=== PATIENT | male | born 1995 | race African-American/Black ===

== ENCOUNTER 2016-09-23 21:04 | Emergency (ER) | payer OTHER ==
[2016-09-23] MEDS ORDERED: IBUPROFEN 600 MG TAB As Ordered ONE (22:19)
[2016-09-23] MEDS ORDERED: ONDANSETRON 4MG/2ML VIAL (J2405) As Ordered ONE (22:19)
[2016-09-23 22:35] LABS: BASO # 0.1 K/mm3 (0.0-0.2); BASO % 1.1 % (0.0-1.0); EOS # 0.1 K/mm3 (0.0-0.50); EOS % 1.7 % (0.0-3.0); LARGE UNSTAINED CELL # 0.2 K/mm3 (0.0-0.4); LARGE UNSTAINED CELL % 2.8 % (0.0-4.0); LYMPH # 1.8 K/mm3 (1.5-6.5); LYMPH % 20.3 % (24.0-44.0); MEAN CORPUSCULAR HEMOGLOBIN 28.9 pg (27.0-33.0); MEAN CORPUSCULAR HGB CONC 33.5 g/dl (32.0-36.5); MEAN CORPUSCULAR VOLUME 86.2 fl (80.0-96.0); MONO # 0.6 K/mm3 (0.0-0.8); MONO % 7.1 % (0.0-5.0); NEUTROPHILS # 5.2 K/mm3 (1.8-7.7); PLATELET COUNT, AUTOMATED 433 k/mm3 (150-450); RED CELL DISTRIBUTION WIDTH 13.7 % (11.5-14.5); WHITE BLOOD COUNT 7.7 K/mm3 (4.0-10.0)
[2016-09-23 23:04] LABS: ALBUMIN 4.5 GM/DL (3.2-5.2); ALBUMIN/GLOBULIN RATIO 1.05 (1.00-1.93); ALKALINE PHOSPHATASE 79 U/L (45-117); ALT/SGPT 30 U/L (12-78); ANION GAP 10 MEQ/L (8-16); AST/SGOT 28 U/L (15-37); BILIRUBIN,DIRECT 0.2 MG/DL (0.0-0.2); BILIRUBIN,TOTAL 0.6 MG/DL (0.2-1.0); BLOOD UREA NITROGEN 22 MG/DL (7-18); CALCIUM LEVEL 9.6 MG/DL (8.5-10.1); CARBON DIOXIDE LEVEL 26 MEQ/L (21-32); CHLORIDE LEVEL 101 MEQ/L (98-107); CREATININE FOR GFR 1.22 MG/DL (0.70-1.30); GLOMERULAR FILTRATION RATE > 60.0 (>60); GLUCOSE, FASTING 83 MG/DL (70-105); SODIUM LEVEL 137 MEQ/L (136-145); TOTAL PROTEIN 8.8 GM/DL (6.4-8.2)
--- NOTE | 2016-09-24 00:02 | EDDOCDS ---
Nurse's Notes [facility] Name: Aj Solis Age: 21 yrs Sex: Male : 1995 Arrival Date: 09/23/2016 Time: 21:04 Bed I9 / 22 Private MD: NJDAVE CHURCH Diagnosis: Nausea and vomiting Presentation: 09/23 21:09 Presenting complaint: Patient states: headache, vomiting for 2-4 days. Adult Sepsis rs3 Screening: The patient does not have new or worsening altered mentation. Patient's respiratory rate is less than 22. Systolic blood pressure is greater than 100. Patient has a qSOFA score of 0- Negative Sepsis Screen. Suicide/Homicide risk assessment- the patient denies having any suicidal and/or homicidal ideations and does not present with any other emotional, behavioral or mental health complaints. 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 Transition of care: patient was not received from another setting of care. 21:09 Acuity: ANNE Level 3 rs3 21:09 Method Of Arrival: Walkin/Carried/Asstd rs3 Triage Assessment: 21:10 General: Appears in no apparent distress. Pain: Location: generalized. HIV screening NA rs3 for this visit Offered previously. Historical: - Allergies: no known allergies; - Home Meds: 1. none - PMHx: none; - PSHx: none; - Social history: Smoking status: Patient states former smoker of tobacco. No barriers to communication noted, The patient speaks fluent Yoruba. - Family history: Not pertinent. - : The pt / caregiver states he / she is not on anticoagulants. Home medication list is obtained from the patient. - Exposure Risk Screening:: None identified. Screenin:33 Screening information is obtained from the patient. Fall risk: No risks identified. ms18 Assistance ADL's: requires no assistance with activities of daily living. Abuse/DV Screen: The patient / caregiver reports he/she is: not in a situation that causes fear, pain or injury. Nutritional screening: No deficits noted. Advance Directives: There is no living will. home support is adequate. Assessment: 22:33 General: Appears in no apparent distress, comfortable, Behavior is appropriate for age, ms18 cooperative. Pain:. Neurological: Level of Consciousness is awake, alert, obeys commands, Oriented to person, place, time. Respiratory: Airway is patent Respiratory effort is even, unlabored. GI: Abdomen is flat, non- distended Bowel sounds present X 4 quads. Abd is soft X 4 quads Reports nausea, vomiting, intolerance of food, intolerance of fluids. Derm: Skin is pink, warm & dry. normal. 23:09 General: Appears in no apparent distress, comfortable, Behavior is appropriate for age, jmb cooperative. Neurological: Level of Consciousness is awake, alert, obeys commands, Oriented to person, place, time, Speech is normal. Respiratory: Airway is patent Respiratory effort is even, unlabored, Respiratory pattern is regular, symmetrical. 09/24 00:00 Reassessment: Patient appears in no apparent distress at this time. General: pt torey slm fluids at this time . Vital Signs: 09/23 21:06 BP 163 / 90; Pulse 86; Resp 18 S; Temp 99.1(O); Pulse Ox 100% on R/A; Weight 76.2 kg dd6 (R); Height 5 ft. 8 in. (172.72 cm) (R); 23:36 BP 132 / 68; Pulse 74; Resp 18; Temp 98.6; Pulse Ox 98% ; ajs 21:06 Body Mass Index 25.54 (76.20 kg, 172.72 cm) dd6 Vitals: 21:06 Log In Time: September 23, 2016 at 21:04. dd6 ED Course: 21:05 Patient visited by Bonifacio Coleman, WM. dd6 21:05 [facility], DAVE JEROME is Private Physician. dd6 21:05 Patient moved to Waiting dd6 21:07 Patient moved to Pre RCE dd6 21:10 Triage Initiated rs3 22:00 Sea Howard MD is Attending Physician. br1 22:00 Patient moved to I9 / kmg1 22:09 Patient visited by Sea Howard MD. br1 22:31 CBC with Diff Sent. ms18 22:31 BMP Sent. ms18 22:31 Liver Profile Sent. ms18 22:31 Lipase Sent. ms18 22:33 Patient visited by Erin Duarte RN. ms18 22:33 The patient / caregiver is instructed regarding the plan of care and ED course. ms18 Accompanied by Significant Other, Patient has correct armband on for positive identification. Placed in gown. Property :Personal belongings accompany Pt. 22:33 Inserted saline lock: 18 gauge in right forearm and blood collected. The patient ms18 tolerated the procedure well. 23:09 Patient visited by Neftali Ramon RN. jmb 23:22 Patient visited by Sea Howard MD. br1 23:36 Patient visited by Sea Howard MD. br1 23:37 Patient visited by Sanam Patterson. ajs 23:37 [facility] br1 23:59 Discontinued lock intact, bleeding controlled, pressure dressing applied, No slm redness/swelling at site. No procedures done that require assistance. 09/24 00:01 Patient visited by Shanae Hi LPN. slm Administered Medications: 09/23 22:31 Drug: Ondansetron 4 mg Route: IVP; Site: right forearm; ms18 09/24 00:00 Follow up: Response: Nausea is decreased slm 09/23 22:32 Drug: NS 0.9% 1000 ml [sodium chloride 0.9 % intravenous solution] Route: IV; Rate: ms18 bolus; Site: right forearm; 09/24 00:00 Follow up: IV Status: Completed infusion; IV Intake: 1000ml slm 09/23 22:32 Drug: Ibuprofen 600 mg [ibuprofen 600 mg tablet (1 tabs)] Route: PO; ms18 Intake: 09/24 00:00 IV: 1000.00ml; Total: 1000.00ml. slm Order Results: Lab Order: CBC with Diff; SPEC'M 09/23/16 22:20 Test: WHITE BLOOD COUNT; Value: 7.7; Range: 4.0-10.0; Units: K/mm3; Status: F Test: RED BLOOD COUNT; Value: 5.53; Range: 4.30-6.10; Units: M/mm3; Status: F Test: HEMOGLOBIN; Value: 16.0; Range: 14.0-18.0; Units: g/dl; Status: F Test: HEMATOCRIT; Value: 47.7; Range: 42.0-52.0; Units: %; Status: F Test: MEAN CORPUSCULAR VOLUME; Value: 86.2; Range: 80.0-96.0; Units: fl; Status: F Test: MEAN CORPUSCULAR HEMOGLOBIN; Value: 28.9; Range: 27.0-33.0; Units: pg; Status: F Test: MEAN CORPUSCULAR HGB CONC; Value: 33.5; Range: 32.0-36.5; Units: g/dl; Status: F Test: RED CELL DISTRIBUTION WIDTH; Value: 13.7; Range: 11.5-14.5; Units: %; Status: F Test: PLATELET COUNT, AUTOMATED; Value: 433; Range: 150-450; Units: k/mm3; Status: F Test: NEUTROPHILS %; Value: 67.0; Range: 36.0-66.0; Abnormal: Above high normal; Units: %; Status: F Test: LYMPH %; Value: 20.3; Range: 24.0-44.0; Abnormal: Below low normal; Units: %; Status: F Test: MONO %; Value: 7.1; Range: 0.0-5.0; Abnormal: Above high normal; Units: %; Status: F Test: EOS %; Value: 1.7; Range: 0.0-3.0; Units: %; Status: F Test: BASO %; Value: 1.1; Range: 0.0-1.0; Abnormal: Above high normal; Units: %; Status: F Test: LARGE UNSTAINED CELL %; Value: 2.8; Range: 0.0-4.0; Units: %; Status: F Test: NEUTROPHILS #; Value: 5.2; Range: 1.8-7.7; Units: K/mm3; Status: F Test: LYMPH #; Value: 1.8; Range: 1.5-6.5; Units: K/mm3; Status: F Test: MONO #; Value: 0.6; Range: 0.0-0.8; Units: K/mm3; Status: F Test: EOS #; Value: 0.1; Range: 0.0-0.50; Units: K/mm3; Status: F Test: BASO #; Value: 0.1; Range: 0.0-0.2; Units: K/mm3; Status: F Test: LARGE UNSTAINED CELL #; Value: 0.2; Range: 0.0-0.4; Units: K/mm3; Status: F Lab Order: BMP; SPEC'M 09/23/16 22:20 Test: GLUCOSE, FASTING; Value: 83; Range: 70-105; Units: MG/DL; Status: F Test: BLOOD UREA NITROGEN; Value: 22; Range: 7-18; Abnormal: Above high normal; Units: MG/DL; Status: F Test: CREATININE FOR GFR; Value: 1.22; Range: 0.70-1.30; Units: MG/DL; Status: F Test: GLOMERULAR FILTRATION RATE; Value: > 60.0; Range: >60; Status: F Test: SODIUM LEVEL; Value: 137; Range: 136-145; Units: MEQ/L; Status: F Test: POTASSIUM SERUM; Value: 4.0; Range: 3.5-5.1; Units: MEQ/L; Status: F Test: CHLORIDE LEVEL; Value: 101; Range: 98-107; Units: MEQ/L; Status: F Test: CARBON DIOXIDE LEVEL; Value: 26; Range: 21-32; Units: MEQ/L; Status: F Test: ANION GAP; Value: 10; Range: 8-16; Units: MEQ/L; Status: F Test: CALCIUM LEVEL; Value: 9.6; Range: 8.5-10.1; Units: MG/DL; Status: F Test Note: ; Units are mL/min/1.73 m2 Chronic Kidney Disease Staging per NKF: Stage I & II GFR >=60 Normal to Mildly Decreased Stage III GFR 30-59 Moderately Decreased Stage IV GFR 15-29 Severely Decreased Stage V GFR <15 Very Little GFR Left ESRD GFR <15 on EMPLOYMENT INTERVIEWER Lab Order: Liver Profile; SPEC'M 09/23/16 22:20 Test: AST/SGOT; Value: 28; Range: 15-37; Units: U/L; Status: F Test: ALT/SGPT; Value: 30; Range: 12-78; Units: U/L; Status: F Test: ALKALINE PHOSPHATASE; Value: 79; Range: 45-117; Units: U/L; Status: F Test: BILIRUBIN,TOTAL; Value: 0.6; Range: 0.2-1.0; Units: MG/DL; Status: F Test: BILIRUBIN,DIRECT; Value: 0.2; Range: 0.0-0.2; Units: MG/DL; Status: F Test: TOTAL PROTEIN; Value: 8.8; Range: 6.4-8.2; Abnormal: Above high normal; Units: GM/DL; Status: F Test: ALBUMIN; Value: 4.5; Range: 3.2-5.2; Units: GM/DL; Status: F Test: ALBUMIN/GLOBULIN RATIO; Value: 1.05; Range: 1.00-1.93; Status: F Lab Order: Lipase; SPEC'M 09/23/16 22:20 Test: LIPASE; Value: 95; Range: 73-393; Units: U/L; Status: F Outcome: 09/23 23:38 Discharge ordered by Provider. br1 09/24 00:00 Discharge Assessment: Patient awake, alert and oriented x 3. No cognitive and/or slm functional deficits noted. Patient verbalized understanding of disposition instructions. patient administered narcotics - no. The following High Risk Discharge criteria are identified: None. Discharged to home ambulatory, with significant other. Condition: good Condition: improved. Discharge instructions given to patient, Instructed on discharge instructions, follow up and referral plans. medication usage, Demonstrated understanding of instructions, medications, Pt was receptive of discharge instructions/ teaching. Prescriptions given X 1. CT Study completed. 00:01 Patient left the ED. slm Signatures: Zari Howell, RN RN kmg1 Sea Howard MD MD br1 Bonifacio Coleman, DIESEL POWERPLANT SUPERVISOR DIESEL POWERPLANT SUPERVISOR dd6 Barby Olguin,RN RN rs3 Sanam Pattersno JoshuaRN RN Shanae Fontaine LPN LPN slm Smith, MalloryRN RN ms18 MTDD
--- NOTE | 2016-09-24 00:02 | EDDOCDS ---
Physician Documentation [facility] Name: Aj Solis Age: 21 yrs Sex: Male : 1995 Arrival Date: 09/23/2016 Time: 21:04 Bed I9 / 22 [facility] Disposition: 09/23/16 23:38 Discharged to Home/Self Care. Impression: Nausea and vomiting. - Condition is Stable. - Discharge Instructions: Nausea and Vomiting. - Prescriptions for ZOFRAN ODT 4 mg - dissolve 1 tablet by ORAL route 4 times per day As needed do not chew, do not swallow whole; 10 tablet. - Medication Reconciliation, Local Pharmacy Hours form. - [facility]; When: 2 - 3 days; Reason: Recheck today's complaints. - Problem is new. - Symptoms have improved. - Notes: You were seen in the ED for nausea and vomiting. Bloodwork showed no acute findings. You were treated and improved with medication and IV fluids. As you are feeling better you may return home, encourage plenty of clear liquids, and take Zofran as needed for nausea. Call your doctor to arrange to be seen for recheck in the office this week. Return to the ED for any worsening pain or vomiting, fever, inability to tolerate oral foods or liquids or any other concerns. Historical: - Allergies: no known allergies; - Home Meds: 1. none - PMHx: none; - PSHx: none; - Social history: Smoking status: Patient states former smoker of tobacco. No barriers to communication noted, The patient speaks fluent Hungarian. - Family history: Not pertinent. - : The pt / caregiver states he / she is not on anticoagulants. Home medication list is obtained from the patient. - Exposure Risk Screening:: None identified. Vital Signs: 09/23 21:06 BP 163 / 90; Pulse 86; Resp 18 S; Temp 99.1(O); Pulse Ox 100% on R/A; Weight 76.2 kg / dd6 167.99 lbs (R); Height 5 ft. 8 in. (172.72 cm) (R); 23:36 BP 132 / 68; Pulse 74; Resp 18; Temp 98.6; Pulse Ox 98% ; ajs 21:06 Body Mass Index 25.54 (76.20 kg, 172.72 cm) dd6 MDM: 22:10 IV Saline Lock ordered. br1 22:10 Ondansetron 4 mg IVP once ordered. br1 22:10 NS 0.9% 1000 ml IV at bolus once ordered. br1 22:10 Ibuprofen 600 mg PO once ordered. br1 22:11 CBC with Diff Ordered. EDMS 22:11 BMP Ordered. EDMS 22:11 Liver Profile Ordered. EDMS 22:11 Lipase Ordered. EDMS 22:46 CBC with Diff Reviewed. br1 23:18 BMP Reviewed. br1 23:18 Liver Profile Reviewed. br1 23:18 Lipase Reviewed. br1 23:21 Fluid Challenge ordered. br1 23:21 Recheck Vital Signs, perform reassessment and enter into [employer] ordered. br1 23:52 Financial registration complete. hs2 Administered Medications: 22:31 Drug: Ondansetron 4 mg Route: IVP; Site: right forearm; ms18 09/24 00:00 Follow up: Response: Nausea is decreased [facility] 09/23 22:32 Drug: NS 0.9% 1000 ml [sodium chloride 0.9 % intravenous solution] Route: IV; Rate: ms18 bolus; Site: right forearm; 09/24 00:00 Follow up: IV Status: Completed infusion; IV Intake: 1000ml [facility] 09/23 22:32 Drug: Ibuprofen 600 mg [ibuprofen 600 mg tablet (1 tabs)] Route: PO; ms18 Signatures: Dispatcher [employer] Sea Lucas MD MD br1 Barby Olguin RN RN rs3 Shanae Hi LPN LPN Erin Springer RN RN ms18 Brigette Gilman, Reg Reg hs2 MTDD
--- NOTE | 2016-09-26 01:02 | EDDOCDS ---
Physician Documentation [facility] Name: Aj Solis Age: 21 yrs Sex: Male : 1995 Arrival Date: 09/23/2016 Time: 21:04 Bed I9 / 22 Private MD: [facility] Disposition: 09/23/16 23:38 Discharged to Home/Self Care. Impression: Nausea and vomiting. - Condition is Stable. - Discharge Instructions: Nausea and Vomiting. - Prescriptions for ZOFRAN ODT 4 mg - dissolve 1 tablet by ORAL route 4 times per day As needed do not chew, do not swallow whole; 10 tablet. - Medication Reconciliation, Local Pharmacy Hours form. - Follow up: [facility]; When: 2 - 3 days; Reason: Recheck today's complaints. - Problem is new. - Symptoms have improved. - Notes: You were seen in the ED for nausea and vomiting. Bloodwork showed no acute findings. You were treated and improved with medication and IV fluids. As you are feeling better you may return home, encourage plenty of clear liquids, and take Zofran as needed for nausea. Call your doctor to arrange to be seen for recheck in the office this week. Return to the ED for any worsening pain or vomiting, fever, inability to tolerate oral foods or liquids or any other concerns. Historical: - Allergies: no known allergies; - Home Meds: 1. none - PMHx: none; - PSHx: none; - Social history: Smoking status: Patient states former smoker of tobacco. No barriers to communication noted, The patient speaks fluent Jordanian. - Family history: Not pertinent. - : The pt / caregiver states he / she is not on anticoagulants. Home medication list is obtained from the patient. - Exposure Risk Screening:: None identified. Vital Signs: 09/23 21:06 BP 163 / 90; Pulse 86; Resp 18 S; Temp 99.1(O); Pulse Ox 100% on R/A; Weight 76.2 kg / dd6 167.99 lbs (R); Height 5 ft. 8 in. (172.72 cm) (R); 23:36 BP 132 / 68; Pulse 74; Resp 18; Temp 98.6; Pulse Ox 98% ; ajs 21:06 Body Mass Index 25.54 (76.20 kg, 172.72 cm) dd6 MDM: 22:10 IV Saline Lock ordered. br1 22:10 Ondansetron 4 mg IVP once ordered. br1 22:10 NS 0.9% 1000 ml IV at bolus once ordered. br1 22:10 Ibuprofen 600 mg PO once ordered. br1 22:11 CBC with Diff Ordered. EDMS 22:11 BMP Ordered. EDMS 22:11 Liver Profile Ordered. EDMS 22:11 Lipase Ordered. EDMS 22:46 CBC with Diff Reviewed. br1 23:18 BMP Reviewed. br1 23:18 Liver Profile Reviewed. br1 23:18 Lipase Reviewed. br1 23:21 Fluid Challenge ordered. br1 23:21 Recheck Vital Signs, perform reassessment and enter into Med[employer] ordered. br1 23:52 Financial registration complete. hs2 09/24 00:18 [facility] Payment Agreement was scanned into [employer] and attached to record. hs2 21:06 T-Sheet-- Draft Copy was scanned into [employer] and attached to record. klr Administered Medications: 09/23 22:31 Drug: Ondansetron 4 mg Route: IVP; Site: right forearm; ms18 09/24 00:00 Follow up: Response: Nausea is decreased [facility] 09/23 22:32 Drug: NS 0.9% 1000 ml [sodium chloride 0.9 % intravenous solution] Route: IV; Rate: ms18 bolus; Site: right forearm; 09/24 00:00 Follow up: IV Status: Completed infusion; IV Intake: 1000ml [facility] 09/23 22:32 Drug: Ibuprofen 600 mg [ibuprofen 600 mg tablet (1 tabs)] Route: PO; ms18 Signatures: Dispatcher Med[employer] EDMS Sea Howard MD MD br1 Barby Olguin RN RN rs3 Shanae Hi LPN LPN slm Erin Duarte RN RN ms18 Brigette Gilman, Reg Reg hs2 Gudelia Grimaldo klr The chart was reviewed and I authenticate all verbal orders and agree with the evaluation and treatment provided.Attachments: 09/24 00:18 [facility] Payment Agreement hs2 21:06 T-Sheet-- Draft Copy klr Chart Complete MTDD
--- NOTE | 2016-09-26 01:02 | EDDOCDS ---
Physician Documentation [facility] Name: Aj Solis Age: 21 yrs Sex: Male : 1995 Arrival Date: 09/23/2016 Time: 21:04 Bed I9 / 22 [facility] Disposition: 09/23/16 23:38 Discharged to Home/Self Care. Impression: Nausea and vomiting. - Condition is Stable. - Discharge Instructions: Nausea and Vomiting. - Prescriptions for ZOFRAN ODT 4 mg - dissolve 1 tablet by ORAL route 4 times per day As needed do not chew, do not swallow whole; 10 tablet. - Medication Reconciliation, Local Pharmacy Hours form. - [facility]; When: 2 - 3 days; Reason: Recheck today's complaints. - Problem is new. - Symptoms have improved. - Notes: You were seen in the ED for nausea and vomiting. Bloodwork showed no acute findings. You were treated and improved with medication and IV fluids. As you are feeling better you may return home, encourage plenty of clear liquids, and take Zofran as needed for nausea. Call your doctor to arrange to be seen for recheck in the office this week. Return to the ED for any worsening pain or vomiting, fever, inability to tolerate oral foods or liquids or any other concerns. Historical: - Allergies: no known allergies; - Home Meds: 1. none - PMHx: none; - PSHx: none; - Social history: Smoking status: Patient states former smoker of tobacco. No barriers to communication noted, The patient speaks fluent Croatian. - Family history: Not pertinent. - : The pt / caregiver states he / she is not on anticoagulants. Home medication list is obtained from the patient. - Exposure Risk Screening:: None identified. Vital Signs: 09/23 21:06 BP 163 / 90; Pulse 86; Resp 18 S; Temp 99.1(O); Pulse Ox 100% on R/A; Weight 76.2 kg / dd6 167.99 lbs (R); Height 5 ft. 8 in. (172.72 cm) (R); 23:36 BP 132 / 68; Pulse 74; Resp 18; Temp 98.6; Pulse Ox 98% ; ajs 21:06 Body Mass Index 25.54 (76.20 kg, 172.72 cm) dd6 MDM: 22:10 IV Saline Lock ordered. br1 22:10 Ondansetron 4 mg IVP once ordered. br1 22:10 NS 0.9% 1000 ml IV at bolus once ordered. br1 22:10 Ibuprofen 600 mg PO once ordered. br1 22:11 CBC with Diff Ordered. EDMS 22:11 BMP Ordered. EDMS 22:11 Liver Profile Ordered. EDMS 22:11 Lipase Ordered. EDMS 22:46 CBC with Diff Reviewed. br1 23:18 BMP Reviewed. br1 23:18 Liver Profile Reviewed. br1 23:18 Lipase Reviewed. br1 23:21 Fluid Challenge ordered. br1 23:21 Recheck Vital Signs, perform reassessment and enter into Med[employer] ordered. br1 23:52 Financial registration complete. hs2 09/24 00:18 [facility] Payment Agreement was scanned into [email or web address] and attached to record. hs2 21:06 T-Sheet-- Draft Copy was scanned into [email or web address] and attached to record. klr Administered Medications: 09/23 22:31 Drug: Ondansetron 4 mg Route: IVP; Site: right forearm; ms18 09/24 00:00 Follow up: Response: Nausea is decreased [facility] 09/23 22:32 Drug: NS 0.9% 1000 ml [sodium chloride 0.9 % intravenous solution] Route: IV; Rate: ms18 bolus; Site: right forearm; 09/24 00:00 Follow up: IV Status: Completed infusion; IV Intake: 1000ml [facility] 09/23 22:32 Drug: Ibuprofen 600 mg [ibuprofen 600 mg tablet (1 tabs)] Route: PO; ms18 Signatures: Dispatcher [employer] EDMS Sea Howard MD MD br1 Barby Olguin RN RN rs3 Shanae Hi LPN LPN slm Erin Duarte RN RN ms18 Brigette Gilman, Reg Reg hs2 Gudelia Grimaldo klr The chart was reviewed and I authenticate all verbal orders and agree with the evaluation and treatment provided.Attachments: 09/24 00:18 [facility] Payment Agreement hs2 21:06 T-Sheet-- Draft Copy klr Chart Complete MTDD
--- NOTE | 2016-09-26 01:02 | EDDOCDS ---
Nurse's Notes [facility] Name: Aj Solis Age: 21 yrs Sex: Male : 1995 Arrival Date: 09/23/2016 Time: 21:04 Bed I9 / 22 Private MD: PADAVE CHURCH Diagnosis: Nausea and vomiting Presentation: 09/23 21:09 Presenting complaint: Patient states: headache, vomiting for 2-4 days. Adult Sepsis rs3 Screening: The patient does not have new or worsening altered mentation. Patient's respiratory rate is less than 22. Systolic blood pressure is greater than 100. Patient has a qSOFA score of 0- Negative Sepsis Screen. Suicide/Homicide risk assessment- the patient denies having any suicidal and/or homicidal ideations and does not present with any other emotional, behavioral or mental health complaints. 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 Transition of care: patient was not received from another setting of care. 21:09 Acuity: ANNE Level 3 rs3 21:09 Method Of Arrival: Walkin/Carried/Asstd rs3 Triage Assessment: 21:10 General: Appears in no apparent distress. Pain: Location: generalized. HIV screening NA rs3 for this visit Offered previously. Historical: - Allergies: no known allergies; - Home Meds: 1. none - PMHx: none; - PSHx: none; - Social history: Smoking status: Patient states former smoker of tobacco. No barriers to communication noted, The patient speaks fluent Portuguese. - Family history: Not pertinent. - : The pt / caregiver states he / she is not on anticoagulants. Home medication list is obtained from the patient. - Exposure Risk Screening:: None identified. Screenin:33 Screening information is obtained from the patient. Fall risk: No risks identified. ms18 Assistance ADL's: requires no assistance with activities of daily living. Abuse/DV Screen: The patient / caregiver reports he/she is: not in a situation that causes fear, pain or injury. Nutritional screening: No deficits noted. Advance Directives: There is no living will. home support is adequate. Assessment: 22:33 General: Appears in no apparent distress, comfortable, Behavior is appropriate for age, ms18 cooperative. Pain:. Neurological: Level of Consciousness is awake, alert, obeys commands, Oriented to person, place, time. Respiratory: Airway is patent Respiratory effort is even, unlabored. GI: Abdomen is flat, non- distended Bowel sounds present X 4 quads. Abd is soft X 4 quads Reports nausea, vomiting, intolerance of food, intolerance of fluids. Derm: Skin is pink, warm & dry. normal. 23:09 General: Appears in no apparent distress, comfortable, Behavior is appropriate for age, jmb cooperative. Neurological: Level of Consciousness is awake, alert, obeys commands, Oriented to person, place, time, Speech is normal. Respiratory: Airway is patent Respiratory effort is even, unlabored, Respiratory pattern is regular, symmetrical. 09/24 00:00 Reassessment: Patient appears in no apparent distress at this time. General: pt torey slm fluids at this time . Vital Signs: 09/23 21:06 BP 163 / 90; Pulse 86; Resp 18 S; Temp 99.1(O); Pulse Ox 100% on R/A; Weight 76.2 kg dd6 (R); Height 5 ft. 8 in. (172.72 cm) (R); 23:36 BP 132 / 68; Pulse 74; Resp 18; Temp 98.6; Pulse Ox 98% ; ajs 21:06 Body Mass Index 25.54 (76.20 kg, 172.72 cm) dd6 Vitals: 21:06 Log In Time: September 23, 2016 at 21:04. dd6 ED Course: 21:05 Patient visited by Bonifacio Coleman, WM. dd6 21:05 [facility], DAVE JEROME is Private Physician. dd6 21:05 Patient moved to Waiting dd6 21:07 Patient moved to Pre RCE dd6 21:10 Triage Initiated rs3 22:00 Sea Howard MD is Attending Physician. br1 22:00 Patient moved to I9 / kmg1 22:09 Patient visited by Sea Howard MD. br1 22:31 CBC with Diff Sent. ms18 22:31 BMP Sent. ms18 22:31 Liver Profile Sent. ms18 22:31 Lipase Sent. ms18 22:33 Patient visited by Erin Duarte RN. ms18 22:33 The patient / caregiver is instructed regarding the plan of care and ED course. ms18 Accompanied by Significant Other, Patient has correct armband on for positive identification. Placed in gown. Property :Personal belongings accompany Pt. 22:33 Inserted saline lock: 18 gauge in right forearm and blood collected. The patient ms18 tolerated the procedure well. 23:09 Patient visited by Neftali Ramon RN. jmb 23:22 Patient visited by Sea Howard MD. br1 23:36 Patient visited by Sea Howard MD. br1 23:37 Patient visited by Sanam Patterson. ajs 23:37 [facility]. br1 23:59 Discontinued lock intact, bleeding controlled, pressure dressing applied, No slm redness/swelling at site. No procedures done that require assistance. 09/24 00:01 Patient visited by Shanae Hi LPN. [facility] 00:18 [facility] Payment Agreement was scanned into [employer] and attached to record. hs2 21:06 T-Sheet-- Draft Copy was scanned into [employer] and attached to record. klr Administered Medications: 09/23 22:31 Drug: Ondansetron 4 mg Route: IVP; Site: right forearm; ms18 09/24 00:00 Follow up: Response: Nausea is decreased [facility] 09/23 22:32 Drug: NS 0.9% 1000 ml [sodium chloride 0.9 % intravenous solution] Route: IV; Rate: ms18 bolus; Site: right forearm; 09/24 00:00 Follow up: IV Status: Completed infusion; IV Intake: 1000ml [facility] 09/23 22:32 Drug: Ibuprofen 600 mg [ibuprofen 600 mg tablet (1 tabs)] Route: PO; ms18 Intake: 09/24 00:00 IV: 1000.00ml; Total: 1000.00ml. [facility] Order Results: Lab Order: CBC with Diff; SPEC'M 09/23/16 22:20 Test: WHITE BLOOD COUNT; Value: 7.7; Range: 4.0-10.0; Units: K/mm3; Status: F Test: RED BLOOD COUNT; Value: 5.53; Range: 4.30-6.10; Units: M/mm3; Status: F Test: HEMOGLOBIN; Value: 16.0; Range: 14.0-18.0; Units: g/dl; Status: F Test: HEMATOCRIT; Value: 47.7; Range: 42.0-52.0; Units: %; Status: F Test: MEAN CORPUSCULAR VOLUME; Value: 86.2; Range: 80.0-96.0; Units: fl; Status: F Test: MEAN CORPUSCULAR HEMOGLOBIN; Value: 28.9; Range: 27.0-33.0; Units: pg; Status: F Test: MEAN CORPUSCULAR HGB CONC; Value: 33.5; Range: 32.0-36.5; Units: g/dl; Status: F Test: RED CELL DISTRIBUTION WIDTH; Value: 13.7; Range: 11.5-14.5; Units: %; Status: F Test: PLATELET COUNT, AUTOMATED; Value: 433; Range: 150-450; Units: k/mm3; Status: F Test: NEUTROPHILS %; Value: 67.0; Range: 36.0-66.0; Abnormal: Above high normal; Units: %; Status: F Test: LYMPH %; Value: 20.3; Range: 24.0-44.0; Abnormal: Below low normal; Units: %; Status: F Test: MONO %; Value: 7.1; Range: 0.0-5.0; Abnormal: Above high normal; Units: %; Status: F Test: EOS %; Value: 1.7; Range: 0.0-3.0; Units: %; Status: F Test: BASO %; Value: 1.1; Range: 0.0-1.0; Abnormal: Above high normal; Units: %; Status: F Test: LARGE UNSTAINED CELL %; Value: 2.8; Range: 0.0-4.0; Units: %; Status: F Test: NEUTROPHILS #; Value: 5.2; Range: 1.8-7.7; Units: K/mm3; Status: F Test: LYMPH #; Value: 1.8; Range: 1.5-6.5; Units: K/mm3; Status: F Test: MONO #; Value: 0.6; Range: 0.0-0.8; Units: K/mm3; Status: F Test: EOS #; Value: 0.1; Range: 0.0-0.50; Units: K/mm3; Status: F Test: BASO #; Value: 0.1; Range: 0.0-0.2; Units: K/mm3; Status: F Test: LARGE UNSTAINED CELL #; Value: 0.2; Range: 0.0-0.4; Units: K/mm3; Status: F Lab Order: BMP; SPEC'M 09/23/16 22:20 Test: GLUCOSE, FASTING; Value: 83; Range: 70-105; Units: MG/DL; Status: F Test: BLOOD UREA NITROGEN; Value: 22; Range: 7-18; Abnormal: Above high normal; Units: MG/DL; Status: F Test: CREATININE FOR GFR; Value: 1.22; Range: 0.70-1.30; Units: MG/DL; Status: F Test: GLOMERULAR FILTRATION RATE; Value: > 60.0; Range: >60; Status: F Test: SODIUM LEVEL; Value: 137; Range: 136-145; Units: MEQ/L; Status: F Test: POTASSIUM SERUM; Value: 4.0; Range: 3.5-5.1; Units: MEQ/L; Status: F Test: CHLORIDE LEVEL; Value: 101; Range: 98-107; Units: MEQ/L; Status: F Test: CARBON DIOXIDE LEVEL; Value: 26; Range: 21-32; Units: MEQ/L; Status: F Test: ANION GAP; Value: 10; Range: 8-16; Units: MEQ/L; Status: F Test: CALCIUM LEVEL; Value: 9.6; Range: 8.5-10.1; Units: MG/DL; Status: F Test Note: ; Units are mL/min/1.73 m2 Chronic Kidney Disease Staging per NKF: Stage I & II GFR >=60 Normal to Mildly Decreased Stage III GFR 30-59 Moderately Decreased Stage IV GFR 15-29 Severely Decreased Stage V GFR <15 Very Little GFR Left ESRD GFR <15 on [employer] Lab Order: Liver Profile; SPEC'M 09/23/16 22:20 Test: AST/SGOT; Value: 28; Range: 15-37; Units: U/L; Status: F Test: ALT/SGPT; Value: 30; Range: 12-78; Units: U/L; Status: F Test: ALKALINE PHOSPHATASE; Value: 79; Range: 45-117; Units: U/L; Status: F Test: BILIRUBIN,TOTAL; Value: 0.6; Range: 0.2-1.0; Units: MG/DL; Status: F Test: BILIRUBIN,DIRECT; Value: 0.2; Range: 0.0-0.2; Units: MG/DL; Status: F Test: TOTAL PROTEIN; Value: 8.8; Range: 6.4-8.2; Abnormal: Above high normal; Units: GM/DL; Status: F Test: ALBUMIN; Value: 4.5; Range: 3.2-5.2; Units: GM/DL; Status: F Test: ALBUMIN/GLOBULIN RATIO; Value: 1.05; Range: 1.00-1.93; Status: F Lab Order: Lipase; SPEC'M 09/23/16 22:20 Test: LIPASE; Value: 95; Range: 73-393; Units: U/L; Status: F Outcome: 09/23 23:38 Discharge ordered by Provider. br1 09/24 00:00 Discharge Assessment: Patient awake, alert and oriented x 3. No cognitive and/or slm functional deficits noted. Patient verbalized understanding of disposition instructions. patient administered narcotics - no. The following High Risk Discharge criteria are identified: None. Discharged to home ambulatory, with significant other. Condition: good Condition: improved. Discharge instructions given to patient, Instructed on discharge instructions, follow up and referral plans. medication usage, Demonstrated understanding of instructions, medications, Pt was receptive of discharge instructions/ teaching. Prescriptions given X 1. CT Study completed. 00:01 Patient left the ED. slm Signatures: Zari Howell, RN RN kmg1 Sea Howard MD MD br1 Bonifacio Coleman, WM [employer] dd6 Barby Olguni,RN RN rs3 Sanam Patterson JoshuaRN RN Shanae Fontaine LPN LPN slm Smith, Mallory, RN RN ms18 Brigette Gilman, Reg Reg hs2 Gudelia Grimaldo Chart Complete MTDD
== END 2016-09-24 00:01 | disposition home or self-care (01) ==
LOC: M ED 21:04
DX: R11.2 Nausea with vomiting, unspecified (principal); Z87.891 Personal history of nicotine dependence
CPT/HCPCS: 36415; 80048; 80076; 83690; 85025; 96361; 96374; 99284; J2405

== ENCOUNTER 2016-09-25 16:53 | Emergency (ER) | payer OTHER ==
[2016-09-25 18:20] LABS: BASO # 0.1 K/mm3 (0.0-0.2); BASO % 1.4 % (0.0-1.0); EOS # 0.1 K/mm3 (0.0-0.50); EOS % 2.4 % (0.0-3.0); LARGE UNSTAINED CELL # 0.2 K/mm3 (0.0-0.4); LARGE UNSTAINED CELL % 3.8 % (0.0-4.0); LYMPH % 36.6 % (24.0-44.0); MEAN CORPUSCULAR HEMOGLOBIN 28.7 pg (27.0-33.0); MEAN CORPUSCULAR HGB CONC 33.3 g/dl (32.0-36.5); MEAN CORPUSCULAR VOLUME 86.4 fl (80.0-96.0); MONO # 0.4 K/mm3 (0.0-0.8); MONO % 8.3 % (0.0-5.0); NEUTROPHILS # 2.3 K/mm3 (1.8-7.7); NEUTROPHILS % 47.4 % (36.0-66.0); PLATELET COUNT, AUTOMATED 431 k/mm3 (150-450); RED CELL DISTRIBUTION WIDTH 13.6 % (11.5-14.5); WHITE BLOOD COUNT 4.8 K/mm3 (4.0-10.0)
[2016-09-25 18:32] LABS: AMPHETAMINES LEVEL URINE NEGATIVE (NEGATIVE); BENZODIAZEPINES URINE NEGATIVE (NEGATIVE); COCAINE METABOLITE URINE NEGATIVE (NEGATIVE); CONTROL LINE INT CTR LINE PRESENT; METHADONE URINE NEGATIVE (NEGATIVE); OPIATES URINE NEGATIVE (NEGATIVE); TRICYCLIC ANTIDEPRESS URINE NEGATIVE (NEGATIVE)
[2016-09-25 18:39] LABS: CONTROL LINE MONO INT CTR LINE PRESENT
[2016-09-25 18:43] LABS: ANION GAP 8 MEQ/L (8-16); BLOOD UREA NITROGEN 15 MG/DL (7-18); CALCIUM LEVEL 9.2 MG/DL (8.5-10.1); CARBON DIOXIDE LEVEL 27 MEQ/L (21-32); CHLORIDE LEVEL 106 MEQ/L (98-107); CREATININE FOR GFR 1.11 MG/DL (0.70-1.30); GLOMERULAR FILTRATION RATE > 60.0 (>60); GLUCOSE, FASTING 102 MG/DL (70-105); SODIUM LEVEL 141 MEQ/L (136-145)
--- NOTE | 2016-09-25 19:35 | REP ---
CHEST X-RAY PA AND LATERAL: 09/25/2016. Clinical history: Pneumonia. Findings: The two views are without prior studies for comparison. Lungs are well inflated. CP angles sharply defined. There is patchy atelectasis or infiltrate in the left base without air bronchograms or dense consolidation. A few cuffed bronchi in the perihilar regions are noted, more on the right than left. No nodular mass. The heart, mediastinal and hilar contours are unremarkable. Airway intact. Aorta normal. Bones without focal lesion. No free air under the diaphragm. Impression: 1. Patchy left infrahilar infiltrate or atelectasis without dense consolidation or pleural effusion. There were a few cuffed bronchi in the perihilar regions that might reflect reactive airway disease or bronchitis. Signed by Gurpreet Min MD 09/25/2016 07:46 P
[2016-09-25] MEDS ORDERED: diphenhydrAMINE 25 MG CAP As Ordered ONE (20:14)
[2016-09-25] MEDS ORDERED: ONDANSETRON 4 MG ORAL DISINTEGRATING TAB (S0181) As Ordered ONE (20:14)
--- NOTE | 2016-09-25 20:24 | EDDOCDS ---
Nurse's Notes [facility] Name: Aj Solis Age: 21 yrs Sex: Male : 1995 Arrival Date: 09/25/2016 Time: 16:53 Bed TR8 Private MD: KYDAVE CHURCH Diagnosis: Myalgia Presentation: 09/25 16:58 Presenting complaint: Patient states: that he hasn't been able to eat, denies vomiting. ms18 Pt states that he hurts all over, pt states that his feet hurt. Pt states that he hasn't been taken any medicine at home. Adult Sepsis Screening: The patient does not have new or worsening altered mentation. Patient's respiratory rate is less than 22. Systolic blood pressure is greater than 100. Patient has a qSOFA score of 0- Negative Sepsis Screen. Suicide/Homicide risk assessment- the patient denies having any suicidal and/or homicidal ideations and does not present with any other emotional, behavioral or mental health complaints. 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 Transition of care: patient was not received from another setting of care. 16:58 Acuity: ANNE Level 4 ms18 16:58 Method Of Arrival: Walkin/Carried/Asstd ms18 Triage Assessment: 17:01 General: Appears in no apparent distress, Behavior is appropriate for age, cooperative, ms18 quiet. Pain: Location: "all over" Pain currently is 6 out of 10 on a pain scale. HIV screening NA for this visit Offered previously. The patient is triaged at the bedside. See Assessment in Nurses Notes section of ED record. Neurological: Level of Consciousness is awake, alert, obeys commands, Oriented to person, place, time, Reports headache. Respiratory: Airway is patent Respiratory effort is even, unlabored. GI: Abdomen is non- distended Reports nausea. Derm: Skin is pink, warm & dry. Historical: - Allergies: seafood; - Home Meds: 1. none - PMHx: none; - PSHx: Hernia repair; - Social history: Smoking status: Patient states was never smoker of tobacco. No barriers to communication noted, The patient speaks fluent French. - Family history: Not pertinent. - : The pt / caregiver states he / she is not on anticoagulants. Home medication list is obtained from the patient. - Exposure Risk Screening:: None identified. Screenin:20 Screening information is obtained from the patient. Fall risk: No risks identified. ms18 Assistance ADL's: requires no assistance with activities of daily living. Abuse/DV Screen: The patient / caregiver reports he/she is: not in a situation that causes fear, pain or injury. Nutritional screening: No deficits noted. Advance Directives: There is no living will. home support is adequate. Assessment: 20:20 General: Appears in no apparent distress, comfortable, Behavior is appropriate for age, ms18 cooperative. Pain: Location: "all over". Neurological: Level of Consciousness is awake, alert, obeys commands, Oriented to person, place, time. Cardiovascular: Capillary refill < 3 seconds. Respiratory: Airway is patent Respiratory effort is even, unlabored. GI: Abdomen is non- distended Reports nausea. Derm: Skin is pink, warm & dry. normal. Vital Signs: 16:55 BP 135 / 99; Pulse 88; Resp 18 S; Temp 99.1(O); Pulse Ox 100% on R/A; Weight 76.2 kg gr2 (R); Height 5 ft. 9 in. (175.26 cm) (R); Pain 8/10; 18:12 BP 147 / 66 Supine; Pulse 74; ms18 18:12 BP 151 / 83 Sitting; Pulse 85; ms18 18:12 BP 148 / 74 Standing; Pulse 90; ms18 20:11 BP 140 / 71; Pulse 69; Resp 18; Temp 100.1(TE); Pulse Ox 98% on R/A; Pain 6/10; ar3 16:55 Body Mass Index 24.81 (76.20 kg, 175.26 cm) gr2 Vitals: 16:55 Log In Time: September 25, 2016 at 16:55. gr2 ED Course: 16:54 Patient visited by Boris Kenny. gr2 16:54 Patient moved to Waiting gr2 16:55 [facility]. gr2 16:56 Patient visited by Boris Kenny. gr2 16:56 Patient moved to Pre RCE gr2 17:01 Triage Initiated ms18 17:06 Patient moved to Triage 3 kcs 17:40 Shadi Morgan PA-C is [facility]. jk8 17:40 Jerome Lyn MD is Attending Physician. jk8 17:40 Patient visited by Shadi Morgan PA-C. jk8 18:15 Patient visited by Tere Yanez PCA. ar3 18:15 Drug Eval Toxicology ED Only Sent. ar3 18:15 UA Sent. ar3 18:15 Monoscreen Sent. ar3 18:15 BMP Sent. ar3 18:15 CBC with Diff Sent. ar3 18:16 Patient moved to TR2 ms18 18:51 [facility] Payment Agreement was scanned into [employer] and attached to record. gjb 20:02 [facility] is Referral Physician. jk8 20:05 Chest, 2 View (pa\\E\\lat) Returned. EDMS 20:06 Patient moved to PR / 25 ar3 20:11 Patient visited by Tere Yanez PCA. ar3 20:19 Patient moved to TR8 cz 20:20 The patient / caregiver is instructed regarding the plan of care and ED course. ms18 Accompanied by Significant Other, Patient has correct armband on for positive identification. Property sent home with patient. 20:20 No IV's were initiated during this patient's visit. No procedures done that require ms18 assistance. Administered Medications: 20:19 Drug: diphenhydrAMINE 25 mg [diphenhydramine 25 mg capsule (1 caps)] Route: PO; ms18 20:20 Drug: Ondansetron ODT 8 mg [ondansetron 4 mg disintegrating tablet (2 tabs)] Route: PO; ms18 Order Results: Lab Order: CBC with Diff; SPEC'M 09/25/16 18:09 Test: WHITE BLOOD COUNT; Value: 4.8; Range: 4.0-10.0; Units: K/mm3; Status: F Test: RED BLOOD COUNT; Value: 4.98; Range: 4.30-6.10; Units: M/mm3; Status: F Test: HEMOGLOBIN; Value: 14.3; Range: 14.0-18.0; Units: g/dl; Status: F Test: HEMATOCRIT; Value: 43.0; Range: 42.0-52.0; Units: %; Status: F Test: MEAN CORPUSCULAR VOLUME; Value: 86.4; Range: 80.0-96.0; Units: fl; Status: F Test: MEAN CORPUSCULAR HEMOGLOBIN; Value: 28.7; Range: 27.0-33.0; Units: pg; Status: F Test: MEAN CORPUSCULAR HGB CONC; Value: 33.3; Range: 32.0-36.5; Units: g/dl; Status: F Test: RED CELL DISTRIBUTION WIDTH; Value: 13.6; Range: 11.5-14.5; Units: %; Status: F Test: PLATELET COUNT, AUTOMATED; Value: 431; Range: 150-450; Units: k/mm3; Status: F Test: NEUTROPHILS %; Value: 47.4; Range: 36.0-66.0; Units: %; Status: F Test: LYMPH %; Value: 36.6; Range: 24.0-44.0; Units: %; Status: F Test: MONO %; Value: 8.3; Range: 0.0-5.0; Abnormal: Above high normal; Units: %; Status: F Test: EOS %; Value: 2.4; Range: 0.0-3.0; Units: %; Status: F Test: BASO %; Value: 1.4; Range: 0.0-1.0; Abnormal: Above high normal; Units: %; Status: F Test: LARGE UNSTAINED CELL %; Value: 3.8; Range: 0.0-4.0; Units: %; Status: F Test: NEUTROPHILS #; Value: 2.3; Range: 1.8-7.7; Units: K/mm3; Status: F Test: LYMPH #; Value: 2.0; Range: 1.5-6.5; Units: K/mm3; Status: F Test: MONO #; Value: 0.4; Range: 0.0-0.8; Units: K/mm3; Status: F Test: EOS #; Value: 0.1; Range: 0.0-0.50; Units: K/mm3; Status: F Test: BASO #; Value: 0.1; Range: 0.0-0.2; Units: K/mm3; Status: F Test: LARGE UNSTAINED CELL #; Value: 0.2; Range: 0.0-0.4; Units: K/mm3; Status: F Lab Order: [facility]; SPEC'M 09/25/16 18:09 Test: GLUCOSE, FASTING; Value: 102; Range: 70-105; Units: MG/DL; Status: F Test: BLOOD UREA NITROGEN; Value: 15; Range: 7-18; Units: MG/DL; Status: F Test: CREATININE FOR GFR; Value: 1.11; Range: 0.70-1.30; Units: MG/DL; Status: F Test: SODIUM LEVEL; Range: 136-145; Units: MEQ/L; Status: I Test: POTASSIUM SERUM; Range: 3.5-5.1; Units: MEQ/L; Status: I Test: CHLORIDE LEVEL; Range: 98-107; Units: MEQ/L; Status: I Test: CARBON DIOXIDE LEVEL; Range: 21-32; Units: MEQ/L; Status: I Test: ANION GAP; Range: 8-16; Units: MEQ/L; Status: I Test: CALCIUM LEVEL; Range: 8.5-10.1; Units: MG/DL; Status: I Test: GLOMERULAR FILTRATION RATE; Value: > 60.0; Range: >60; Status: F Test: SODIUM LEVEL; Value: 141; Range: 136-145; Units: MEQ/L; Status: F Test: POTASSIUM SERUM; Value: 4.0; Range: 3.5-5.1; Units: MEQ/L; Status: F Test: CHLORIDE LEVEL; Value: 106; Range: 98-107; Units: MEQ/L; Status: F Test: CARBON DIOXIDE LEVEL; Value: 27; Range: 21-32; Units: MEQ/L; Status: F Test: ANION GAP; Value: 8; Range: 8-16; Units: MEQ/L; Status: F Test: CALCIUM LEVEL; Value: 9.2; Range: 8.5-10.1; Units: MG/DL; Status: F Test Note: ; Units are mL/min/1.73 m2 Chronic Kidney Disease Staging per NKF: Stage I & II GFR >=60 Normal to Mildly Decreased Stage III GFR 30-59 Moderately Decreased Stage IV GFR 15-29 Severely Decreased Stage V GFR <15 Very Little GFR Left ESRD GFR <15 on MEDICAL ACCOUNTS RECEIVABLE SPECIALIST Lab Order: Monoscreen; SPEC'M 09/25/16 18:09 Test: MONO SCRN; Value: NEGATIVE; Range: NEGATIVE; Status: F Lab Order: UA; SPEC'M 09/25/16 18:05 Test: APPEARANCE, URINE; Value: HAZY; Range: CLEAR; Status: F Test: COLOR, URINE; Value: YELLOW; Range: YELLOW; Status: F Test: PH,URINE; Value: 5.0; Range: 5.0-9.0; Units: UNITS; Status: F Test: SPECIFIC GRAVITY URINE AUTO; Value: 1.027; Range: 1.002-1.035; Status: F Test: PROTEIN, URINE AUTO; Value: NEGATIVE; Range: NEGATIVE; Units: mg/dL; Status: F Test: GLUCOSE, URINE (UA) AUTO; Value: NEGATIVE; Range: NEGATIVE; Units: mg/dL; Status: F Test: KETONE, URINE AUTO; Value: NEGATIVE; Range: NEGATIVE; Units: mg/dL; Status: F Test: UROBILINOGEN, URINE AUTO; Value: 0.2; Range: 0.0-2.0; Units: mg/dL; Status: F Test: BILIRUBIN, URINE AUTO; Value: NEGATIVE; Range: NEGATIVE; Status: F Test: NITRITE, URINE AUTO; Value: NEGATIVE; Range: NEGATIVE; Status: F Test: LEUKOCYTE ESTERASE, URINE AUTO; Value: NEGATIVE; Range: NEGATIVE; Status: F Test: BLOOD, URINE BLOOD; Value: NEGATIVE; Range: NEGATIVE; Status: F Test: WBC, URINE AUTO; Value: 2; Range: 0-3; Units: /HPF; Status: F Test: RBC, URINE AUTO; Value: 2; Range: 0-3; Units: /HPF; Status: F Test: BACTERIA, URINE AUTO; Value: NEGATIVE; Range: NEGATIVE; Status: F Test: SQUAMOUS EPITHELIAL CELL UR AU; Value: 0; Range: 0-6; Units: /HPF; Status: F Test: MUCUS, URINE; Value: SMALL; Range: NEGATIVE; Status: F Test: HYALINE CAST, URINE AUTO; Value: 0; Range: 0-1; Units: /LPF; Status: F Lab Order: Drug Eval Toxicology ED Only; SPEC'M 09/25/16 18:05 Test: AMPHETAMINES LEVEL URINE; Value: NEGATIVE; Range: NEGATIVE; Status: F Test: BARBITURATES URINE; Value: NEGATIVE; Range: NEGATIVE; Status: F Test: BENZODIAZEPINES URINE; Value: NEGATIVE; Range: NEGATIVE; Status: F Test: CANNABINOIDS URINE; Value: POSITIVE; Range: NEGATIVE; Abnormal: Above high normal; Status: F Test: COCAINE METABOLITE URINE; Value: NEGATIVE; Range: NEGATIVE; Status: F Test: METHADONE URINE; Value: NEGATIVE; Range: NEGATIVE; Status: F Test: OPIATES URINE; Value: NEGATIVE; Range: NEGATIVE; Status: F Test: TRICYCLIC ANTIDEPRESS URINE; Value: NEGATIVE; Range: NEGATIVE; Status: F Test Note: ; FALSE POSITIVE RESULTS CAN BE CAUSED BY THE USE OF PANTOPRAZOLE (PROTONIX). Lab Order: CREATINE PHOSPHOKINASE; SPEC'M 09/25/16 18:09 Test: CPK CREATINE PHOSPHOKINASE; Value: 467; Range: 39-308; Abnormal: Above high normal; Units: U/L; Status: F Radiology Order: Chest, 2 View (pa\\E\\lat) Test: Chest, 2 View (pa\\E\\lat) REASON FOR EXAMINATION: r/o pna; CHEST X-RAY PA AND LATERAL: 09/25/2016.; ; Clinical history: Pneumonia.; ; Findings: The two views are without prior studies for comparison. Lungs are; well inflated. CP angles sharply defined. There is patchy atelectasis or; infiltrate in the left base without air bronchograms or dense consolidation. A; few cuffed bronchi in the perihilar regions are noted, more on the right than; left. No nodular mass. The heart, mediastinal and hilar contours are; unremarkable. Airway intact. Aorta normal. Bones without focal lesion. No; free air under the diaphragm.; ; Impression:; ; 1. Patchy left infrahilar infiltrate or atelectasis without dense consolidation; or pleural effusion. There were a few cuffed bronchi in the perihilar regions; that might reflect reactive airway disease or bronchitis.; ; ; Signed by; Gurpreet Min MD 09/25/2016 07:46 P; Outcome: 20:02 Discharge ordered by Provider. jk8 20:20 Discharge Assessment: Patient awake, alert and oriented x 3. No cognitive and/or ms18 functional deficits noted. Patient verbalized understanding of disposition instructions. patient administered narcotics - no. The following High Risk Discharge criteria are identified: None. Discharged to home ambulatory. Condition: good Condition: stable. Discharge instructions given to patient, Instructed on discharge instructions, follow up and referral plans. medication usage, Demonstrated understanding of instructions, medications, Pt was receptive of discharge instructions/ teaching. Prescriptions given X 2. No special radiology studies were completed. 20:23 Patient left the ED. ms18 Signatures: Dispatcher MedHost EDMS Catrachita Qureshi, RN RN José Miguel Dalton RN RN cz Tere Yanez, CASTING MACHINE SET UP OPERATOR CASTING MACHINE SET UP OPERATOR ar3 Boris Kenny gr2 Erin Duarte RN RN ms18 Shadi Morgan PA-C PA-C jk8 Beck, Gabriela gjb Corrections: (The following items were deleted from the chart) 19:44 19:42 CREATINE PHOSPHOKINASE+LAB sent. ar3 EDMS MTDD
--- NOTE | 2016-09-25 20:24 | EDDOCDS ---
Physician Documentation [facility] Name: Aj Solis Age: 21 yrs Sex: Male : 1995 Arrival Date: 09/25/2016 Time: 16:53 Bed TR8 Private MD: [facility] Disposition: 09/25/16 20:02 Discharged to Home/Self Care. Impression: Myalgia. - Condition is Stable. - Prescriptions for Naprosyn 500 mg Oral Tablet - take 1 tablet by ORAL route 2 times per day take with food; 30 tablet. Benadryl 25 mg Oral Capsule - take 1 capsule by ORAL route every 6 hours As needed; 30 tablet. ZOFRAN ODT 8 mg - dissolve 1 tablet by ORAL route 3 times per day As needed do not chew, do not swallow whole; 10 tablet. - Medication Reconciliation, Local Pharmacy Hours form. - Follow up: Emergency Department; When: As soon as possible; Reason: Worsening of conditions. Follow up: [facility]; When: 1 - 2 days; Reason: Recheck today's complaints. - Problem is an ongoing problem. - Symptoms are unchanged. Historical: - Allergies: seafood; - Home Meds: 1. none - PMHx: none; - PSHx: Hernia repair; - Social history: Smoking status: Patient states was never smoker of tobacco. No barriers to communication noted, The patient speaks fluent Kyrgyz. - Family history: Not pertinent. - : The pt / caregiver states he / she is not on anticoagulants. Home medication list is obtained from the patient. - Exposure Risk Screening:: None identified. Vital Signs: 09/25 16:55 BP 135 / 99; Pulse 88; Resp 18 S; Temp 99.1(O); Pulse Ox 100% on R/A; Weight 76.2 kg / gr2 167.99 lbs (R); Height 5 ft. 9 in. (175.26 cm) (R); Pain 8/10; 18:12 BP 147 / 66 Supine; Pulse 74; ms18 18:12 BP 151 / 83 Sitting; Pulse 85; ms18 18:12 BP 148 / 74 Standing; Pulse 90; ms18 20:11 BP 140 / 71; Pulse 69; Resp 18; Temp 100.1(TE); Pulse Ox 98% on R/A; Pain 6/10; ar3 16:55 Body Mass Index 24.81 (76.20 kg, 175.26 cm) gr2 MDM: 17:55 Orthostatic VS ordered. jk8 17:56 CBC with Diff Ordered. EDMS 17:56 BMP Ordered. EDMS 17:56 Monoscreen Ordered. EDMS 17:56 UA Ordered. EDMS 17:56 Drug Eval Toxicology ED Only Ordered. EDMS 17:56 Chest, 2 View (pa\E\lat) Ordered. EDMS 18:31 Financial registration complete. gjb 18:51 [facility] Payment Agreement was scanned into [employer] and attached to record. gjb 19:31 Drug Eval Toxicology ED Only Reviewed. jk8 19:32 CBC with Diff Reviewed. jk8 19:32 BMP Reviewed. jk8 19:32 Monoscreen Reviewed. jk8 19:32 UA Reviewed. jk8 19:36 Chest, 2 View (pa\E\lat) Reviewed. jk8 20:01 CREATINE PHOSPHOKINASE Reviewed. jk8 20:01 BMP Reviewed. jk8 20:01 Monoscreen Reviewed. jk8 20:08 Ondansetron ODT Oral Disintegrating Tablet 8 mg PO once ordered. jk8 20:08 diphenhydrAMINE 25 mg PO once ordered. jk8 Administered Medications: 20:19 Drug: diphenhydrAMINE 25 mg [diphenhydramine 25 mg capsule (1 caps)] Route: PO; ms18 20:20 Drug: Ondansetron ODT 8 mg [ondansetron 4 mg disintegrating tablet (2 tabs)] Route: PO; ms18 Signatures: Dispatcher [employer] EDDE Erin Duarte RN RN ms18 Shadi Morgan PA-C PAYing Mayo The chart was reviewed and I authenticate all verbal orders and agree with the evaluation and treatment provided.Corrections: (The following items were deleted from the chart) 19:44 19:39 CREATINE PHOSPHOKINASE+LAB ordered. EDMS EDMS Attachments: 18:51 [facility] Payment Agreement gjb MTDD
--- NOTE | 2016-09-27 21:24 | EDDOCDS ---
Physician Documentation [facility] Name: Aj Solis Age: 21 yrs Sex: Male : 1995 Arrival Date: 09/25/2016 Time: 16:53 Bed TR8 Private MD: [facility] Disposition: 09/25/16 20:02 Discharged to Home/Self Care. Impression: Myalgia. - Condition is Stable. - Prescriptions for Naprosyn 500 mg Oral Tablet - take 1 tablet by ORAL route 2 times per day take with food; 30 tablet. Benadryl 25 mg Oral Capsule - take 1 capsule by ORAL route every 6 hours As needed; 30 tablet. ZOFRAN ODT 8 mg - dissolve 1 tablet by ORAL route 3 times per day As needed do not chew, do not swallow whole; 10 tablet. - Medication Reconciliation, Local Pharmacy Hours form. - Follow up: Emergency Department; When: As soon as possible; Reason: Worsening of conditions. Follow up: [facility]; When: 1 - 2 days; Reason: Recheck today's complaints. - Problem is an ongoing problem. - Symptoms are unchanged. Historical: - Allergies: seafood; - Home Meds: 1. none - PMHx: none; - PSHx: Hernia repair; - Social history: Smoking status: Patient states was never smoker of tobacco. No barriers to communication noted, The patient speaks fluent Danish. - Family history: Not pertinent. - : The pt / caregiver states he / she is not on anticoagulants. Home medication list is obtained from the patient. - Exposure Risk Screening:: None identified. Vital Signs: 09/25 16:55 BP 135 / 99; Pulse 88; Resp 18 S; Temp 99.1(O); Pulse Ox 100% on R/A; Weight 76.2 kg / gr2 167.99 lbs (R); Height 5 ft. 9 in. (175.26 cm) (R); Pain 8/10; 18:12 BP 147 / 66 Supine; Pulse 74; ms18 18:12 BP 151 / 83 Sitting; Pulse 85; ms18 18:12 BP 148 / 74 Standing; Pulse 90; ms18 20:11 BP 140 / 71; Pulse 69; Resp 18; Temp 100.1(TE); Pulse Ox 98% on R/A; Pain 6/10; ar3 16:55 Body Mass Index 24.81 (76.20 kg, 175.26 cm) gr2 MDM: 17:55 Orthostatic VS ordered. jk8 17:56 CBC with Diff Ordered. EDMS 17:56 BMP Ordered. EDMS 17:56 Monoscreen Ordered. EDMS 17:56 UA Ordered. EDMS 17:56 Drug Eval Toxicology ED Only Ordered. EDMS 17:56 Chest, 2 View (pa\E\lat) Ordered. EDMS 18:31 Financial registration complete. gjb 18:51 [facility] Payment Agreement was scanned into [employer] and attached to record. gjb 19:31 Drug Eval Toxicology ED Only Reviewed. jk8 19:32 CBC with Diff Reviewed. jk8 19:32 BMP Reviewed. jk8 19:32 Monoscreen Reviewed. jk8 19:32 UA Reviewed. jk8 19:36 Chest, 2 View (pa\E\lat) Reviewed. jk8 20:01 CREATINE PHOSPHOKINASE Reviewed. jk8 20:01 BMP Reviewed. jk8 20:01 Monoscreen Reviewed. jk8 20:08 Ondansetron ODT Oral Disintegrating Tablet 8 mg PO once ordered. jk8 20:08 diphenhydrAMINE 25 mg PO once ordered. jk8 21:53 T-Sheet-- Draft Copy was scanned into [employer] and attached to record. klr Administered Medications: 20:19 Drug: diphenhydrAMINE 25 mg [diphenhydramine 25 mg capsule (1 caps)] Route: PO; ms18 20:20 Drug: Ondansetron ODT 8 mg [ondansetron 4 mg disintegrating tablet (2 tabs)] Route: PO; ms18 Signatures: Dispatcher [employer] EDMS Erin Duarte RN RN ms18 Shadi Morgan PA-C PA-C jk8 Beck, Gabriela gjb Redder, Kathie klr The chart was reviewed and I authenticate all verbal orders and agree with the evaluation and treatment provided.Corrections: (The following items were deleted from the chart) 19:44 19:39 CREATINE PHOSPHOKINASE+LAB ordered. EDMS EDMS Attachments: 18:51 [facility] Payment Agreement gj 21:53 T-Sheet-- Draft Copy klr Chart Complete MTDD
--- NOTE | 2016-09-27 21:24 | EDDOCDS ---
Physician Documentation [facility] Name: Aj Solis Age: 21 yrs Sex: Male : 1995 Arrival Date: 09/25/2016 Time: 16:53 Bed TR8 Private MD: [facility] Disposition: 09/25/16 20:02 Discharged to Home/Self Care. Impression: Myalgia. - Condition is Stable. - Prescriptions for Naprosyn 500 mg Oral Tablet - take 1 tablet by ORAL route 2 times per day take with food; 30 tablet. Benadryl 25 mg Oral Capsule - take 1 capsule by ORAL route every 6 hours As needed; 30 tablet. ZOFRAN ODT 8 mg - dissolve 1 tablet by ORAL route 3 times per day As needed do not chew, do not swallow whole; 10 tablet. - Medication Reconciliation, Local Pharmacy Hours form. - Follow up: Emergency Department; When: As soon as possible; Reason: Worsening of conditions. Follow up: [facility]; When: 1 - 2 days; Reason: Recheck today's complaints. - Problem is an ongoing problem. - Symptoms are unchanged. Historical: - Allergies: seafood; - Home Meds: 1. none - PMHx: none; - PSHx: Hernia repair; - Social history: Smoking status: Patient states was never smoker of tobacco. No barriers to communication noted, The patient speaks fluent Kiswahili. - Family history: Not pertinent. - : The pt / caregiver states he / she is not on anticoagulants. Home medication list is obtained from the patient. - Exposure Risk Screening:: None identified. Vital Signs: 09/25 16:55 BP 135 / 99; Pulse 88; Resp 18 S; Temp 99.1(O); Pulse Ox 100% on R/A; Weight 76.2 kg / gr2 167.99 lbs (R); Height 5 ft. 9 in. (175.26 cm) (R); Pain 8/10; 18:12 BP 147 / 66 Supine; Pulse 74; ms18 18:12 BP 151 / 83 Sitting; Pulse 85; ms18 18:12 BP 148 / 74 Standing; Pulse 90; ms18 20:11 BP 140 / 71; Pulse 69; Resp 18; Temp 100.1(TE); Pulse Ox 98% on R/A; Pain 6/10; ar3 16:55 Body Mass Index 24.81 (76.20 kg, 175.26 cm) gr2 MDM: 17:55 Orthostatic VS ordered. jk8 17:56 CBC with Diff Ordered. EDMS 17:56 BMP Ordered. EDMS 17:56 Monoscreen Ordered. EDMS 17:56 UA Ordered. EDMS 17:56 Drug Eval Toxicology ED Only Ordered. EDMS 17:56 Chest, 2 View (pa\E\lat) Ordered. EDMS 18:31 Financial registration complete. gjb 18:51 [facility] Payment Agreement was scanned into [employer] and attached to record. gjb 19:31 Drug Eval Toxicology ED Only Reviewed. jk8 19:32 CBC with Diff Reviewed. jk8 19:32 BMP Reviewed. jk8 19:32 Monoscreen Reviewed. jk8 19:32 UA Reviewed. jk8 19:36 Chest, 2 View (pa\E\lat) Reviewed. jk8 20:01 CREATINE PHOSPHOKINASE Reviewed. jk8 20:01 BMP Reviewed. jk8 20:01 Monoscreen Reviewed. jk8 20:08 Ondansetron ODT Oral Disintegrating Tablet 8 mg PO once ordered. jk8 20:08 diphenhydrAMINE 25 mg PO once ordered. jk8 21:53 T-Sheet-- Draft Copy was scanned into [employer] and attached to record. klr Administered Medications: 20:19 Drug: diphenhydrAMINE 25 mg [diphenhydramine 25 mg capsule (1 caps)] Route: PO; ms18 20:20 Drug: Ondansetron ODT 8 mg [ondansetron 4 mg disintegrating tablet (2 tabs)] Route: PO; ms18 Signatures: Dispatcher [employer] EDMS Erin Duarte RN RN ms18 Shadi Morgan PA-C PA-C jk8 Beck, Gabriela gjb Redder, Kathie klr The chart was reviewed and I authenticate all verbal orders and agree with the evaluation and treatment provided.Corrections: (The following items were deleted from the chart) 19:44 19:39 CREATINE PHOSPHOKINASE+LAB ordered. EDMS EDMS Attachments: 18:51 [facility] Payment Agreement gj 21:53 T-Sheet-- Draft Copy klr Chart Complete MTDD
--- NOTE | 2016-09-27 21:24 | EDDOCDS ---
Nurse's Notes [facility] Name: Aj Solis Age: 21 yrs Sex: Male : 1995 Arrival Date: 09/25/2016 Time: 16:53 Bed TR8 Private MD: OHDAVE CHURCH Diagnosis: Myalgia Presentation: 09/25 16:58 Presenting complaint: Patient states: that he hasn't been able to eat, denies vomiting. ms18 Pt states that he hurts all over, pt states that his feet hurt. Pt states that he hasn't been taken any medicine at home. Adult Sepsis Screening: The patient does not have new or worsening altered mentation. Patient's respiratory rate is less than 22. Systolic blood pressure is greater than 100. Patient has a qSOFA score of 0- Negative Sepsis Screen. Suicide/Homicide risk assessment- the patient denies having any suicidal and/or homicidal ideations and does not present with any other emotional, behavioral or mental health complaints. 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 Transition of care: patient was not received from another setting of care. 16:58 Acuity: ANNE Level 4 ms18 16:58 Method Of Arrival: Walkin/Carried/Asstd ms18 Triage Assessment: 17:01 General: Appears in no apparent distress, Behavior is appropriate for age, cooperative, ms18 quiet. Pain: Location: "all over" Pain currently is 6 out of 10 on a pain scale. HIV screening NA for this visit Offered previously. The patient is triaged at the bedside. See Assessment in Nurses Notes section of ED record. Neurological: Level of Consciousness is awake, alert, obeys commands, Oriented to person, place, time, Reports headache. Respiratory: Airway is patent Respiratory effort is even, unlabored. GI: Abdomen is non- distended Reports nausea. Derm: Skin is pink, warm & dry. Historical: - Allergies: seafood; - Home Meds: 1. none - PMHx: none; - PSHx: Hernia repair; - Social history: Smoking status: Patient states was never smoker of tobacco. No barriers to communication noted, The patient speaks fluent Kinyarwanda. - Family history: Not pertinent. - : The pt / caregiver states he / she is not on anticoagulants. Home medication list is obtained from the patient. - Exposure Risk Screening:: None identified. Screenin:20 Screening information is obtained from the patient. Fall risk: No risks identified. ms18 Assistance ADL's: requires no assistance with activities of daily living. Abuse/DV Screen: The patient / caregiver reports he/she is: not in a situation that causes fear, pain or injury. Nutritional screening: No deficits noted. Advance Directives: There is no living will. home support is adequate. Assessment: 20:20 General: Appears in no apparent distress, comfortable, Behavior is appropriate for age, ms18 cooperative. Pain: Location: "all over". Neurological: Level of Consciousness is awake, alert, obeys commands, Oriented to person, place, time. Cardiovascular: Capillary refill < 3 seconds. Respiratory: Airway is patent Respiratory effort is even, unlabored. GI: Abdomen is non- distended Reports nausea. Derm: Skin is pink, warm & dry. normal. Vital Signs: 16:55 BP 135 / 99; Pulse 88; Resp 18 S; Temp 99.1(O); Pulse Ox 100% on R/A; Weight 76.2 kg gr2 (R); Height 5 ft. 9 in. (175.26 cm) (R); Pain 8/10; 18:12 BP 147 / 66 Supine; Pulse 74; ms18 18:12 BP 151 / 83 Sitting; Pulse 85; ms18 18:12 BP 148 / 74 Standing; Pulse 90; ms18 20:11 BP 140 / 71; Pulse 69; Resp 18; Temp 100.1(TE); Pulse Ox 98% on R/A; Pain 6/10; ar3 16:55 Body Mass Index 24.81 (76.20 kg, 175.26 cm) gr2 Vitals: 16:55 Log In Time: September 25, 2016 at 16:55. gr2 ED Course: 16:54 Patient visited by Boris Kenny. gr2 16:54 Patient moved to Waiting gr2 16:55 [facility]. gr2 16:56 Patient visited by Boris Kenny. gr2 16:56 Patient moved to Pre RCE gr2 17:01 Triage Initiated ms18 17:06 Patient moved to Triage 3 kcs 17:40 [facility] jk8 17:40 Jerome Lyn MD is Attending Physician. jk8 17:40 Patient visited by Shadi Morgan PA-C. jk8 18:15 Patient visited by Tere Yanez PCA. ar3 18:15 Drug Eval Toxicology ED Only Sent. ar3 18:15 UA Sent. ar3 18:15 Monoscreen Sent. ar3 18:15 BMP Sent. ar3 18:15 CBC with Diff Sent. ar3 18:16 Patient moved to TR2 ms18 18:51 [facility] Payment Agreement was scanned into [employer] and attached to record. gjb 20:02 [facility] [place] is Referral Physician. jk8 20:05 Chest, 2 View (pa\\E\\lat) Returned. EDMS 20:06 Patient moved to PR ar3 20:11 Patient visited by Tere Yanez PCA. ar3 20:19 Patient moved to TR8 cz 20:20 The patient / caregiver is instructed regarding the plan of care and ED course. ms18 Accompanied by Significant Other, Patient has correct armband on for positive identification. Property sent home with patient. 20:20 No IV's were initiated during this patient's visit. No procedures done that require ms18 assistance. 21:53 T-Sheet-- Draft Copy was scanned into [employer]ap[employer] and attached to record. klr Administered Medications: 20:19 Drug: diphenhydrAMINE 25 mg [diphenhydramine 25 mg capsule (1 caps)] Route: PO; ms18 20:20 Drug: Ondansetron ODT 8 mg [ondansetron 4 mg disintegrating tablet (2 tabs)] Route: PO; ms18 Order Results: Lab Order: CBC with Diff; SPEC'M 09/25/16 18:09 Test: WHITE BLOOD COUNT; Value: 4.8; Range: 4.0-10.0; Units: K/mm3; Status: F Test: RED BLOOD COUNT; Value: 4.98; Range: 4.30-6.10; Units: M/mm3; Status: F Test: HEMOGLOBIN; Value: 14.3; Range: 14.0-18.0; Units: g/dl; Status: F Test: HEMATOCRIT; Value: 43.0; Range: 42.0-52.0; Units: %; Status: F Test: MEAN CORPUSCULAR VOLUME; Value: 86.4; Range: 80.0-96.0; Units: fl; Status: F Test: MEAN CORPUSCULAR HEMOGLOBIN; Value: 28.7; Range: 27.0-33.0; Units: pg; Status: F Test: MEAN CORPUSCULAR HGB CONC; Value: 33.3; Range: 32.0-36.5; Units: g/dl; Status: F Test: RED CELL DISTRIBUTION WIDTH; Value: 13.6; Range: 11.5-14.5; Units: %; Status: F Test: PLATELET COUNT, AUTOMATED; Value: 431; Range: 150-450; Units: k/mm3; Status: F Test: NEUTROPHILS %; Value: 47.4; Range: 36.0-66.0; Units: %; Status: F Test: LYMPH %; Value: 36.6; Range: 24.0-44.0; Units: %; Status: F Test: MONO %; Value: 8.3; Range: 0.0-5.0; Abnormal: Above high normal; Units: %; Status: F Test: EOS %; Value: 2.4; Range: 0.0-3.0; Units: %; Status: F Test: BASO %; Value: 1.4; Range: 0.0-1.0; Abnormal: Above high normal; Units: %; Status: F Test: LARGE UNSTAINED CELL %; Value: 3.8; Range: 0.0-4.0; Units: %; Status: F Test: NEUTROPHILS #; Value: 2.3; Range: 1.8-7.7; Units: K/mm3; Status: F Test: LYMPH #; Value: 2.0; Range: 1.5-6.5; Units: K/mm3; Status: F Test: MONO #; Value: 0.4; Range: 0.0-0.8; Units: K/mm3; Status: F Test: EOS #; Value: 0.1; Range: 0.0-0.50; Units: K/mm3; Status: F Test: BASO #; Value: 0.1; Range: 0.0-0.2; Units: K/mm3; Status: F Test: LARGE UNSTAINED CELL #; Value: 0.2; Range: 0.0-0.4; Units: K/mm3; Status: F Lab Order: BMP; SPEC'M 09/25/16 18:09 Test: GLUCOSE, FASTING; Value: 102; Range: 70-105; Units: MG/DL; Status: F Test: BLOOD UREA NITROGEN; Value: 15; Range: 7-18; Units: MG/DL; Status: F Test: CREATININE FOR GFR; Value: 1.11; Range: 0.70-1.30; Units: MG/DL; Status: F Test: SODIUM LEVEL; Range: 136-145; Units: MEQ/L; Status: I Test: POTASSIUM SERUM; Range: 3.5-5.1; Units: MEQ/L; Status: I Test: CHLORIDE LEVEL; Range: 98-107; Units: MEQ/L; Status: I Test: CARBON DIOXIDE LEVEL; Range: 21-32; Units: MEQ/L; Status: I Test: ANION GAP; Range: 8-16; Units: MEQ/L; Status: I Test: CALCIUM LEVEL; Range: 8.5-10.1; Units: MG/DL; Status: I Test: GLOMERULAR FILTRATION RATE; Value: > 60.0; Range: >60; Status: F Test: SODIUM LEVEL; Value: 141; Range: 136-145; Units: MEQ/L; Status: F Test: POTASSIUM SERUM; Value: 4.0; Range: 3.5-5.1; Units: MEQ/L; Status: F Test: CHLORIDE LEVEL; Value: 106; Range: 98-107; Units: MEQ/L; Status: F Test: CARBON DIOXIDE LEVEL; Value: 27; Range: 21-32; Units: MEQ/L; Status: F Test: ANION GAP; Value: 8; Range: 8-16; Units: MEQ/L; Status: F Test: CALCIUM LEVEL; Value: 9.2; Range: 8.5-10.1; Units: MG/DL; Status: F Test Note: ; Units are mL/min/1.73 m2 Chronic Kidney Disease Staging per NKF: Stage I & II GFR >=60 Normal to Mildly Decreased Stage III GFR 30-59 Moderately Decreased Stage IV GFR 15-29 Severely Decreased Stage V GFR <15 Very Little GFR Left ESRD GFR <15 on [place] Lab Order: Monoscreen; SPEC'M 09/25/16 18:09 Test: MONO SCRN; Value: NEGATIVE; Range: NEGATIVE; Status: F Lab Order: UA; SPEC'M 09/25/16 18:05 Test: APPEARANCE, URINE; Value: HAZY; Range: CLEAR; Status: F Test: COLOR, URINE; Value: YELLOW; Range: YELLOW; Status: F Test: PH,URINE; Value: 5.0; Range: 5.0-9.0; Units: UNITS; Status: F Test: SPECIFIC GRAVITY URINE AUTO; Value: 1.027; Range: 1.002-1.035; Status: F Test: PROTEIN, URINE AUTO; Value: NEGATIVE; Range: NEGATIVE; Units: mg/dL; Status: F Test: GLUCOSE, URINE (UA) AUTO; Value: NEGATIVE; Range: NEGATIVE; Units: mg/dL; Status: F Test: KETONE, URINE AUTO; Value: NEGATIVE; Range: NEGATIVE; Units: mg/dL; Status: F Test: UROBILINOGEN, URINE AUTO; Value: 0.2; Range: 0.0-2.0; Units: mg/dL; Status: F Test: BILIRUBIN, URINE AUTO; Value: NEGATIVE; Range: NEGATIVE; Status: F Test: NITRITE, URINE AUTO; Value: NEGATIVE; Range: NEGATIVE; Status: F Test: LEUKOCYTE ESTERASE, URINE AUTO; Value: NEGATIVE; Range: NEGATIVE; Status: F Test: BLOOD, URINE BLOOD; Value: NEGATIVE; Range: NEGATIVE; Status: F Test: WBC, URINE AUTO; Value: 2; Range: 0-3; Units: /HPF; Status: F Test: RBC, URINE AUTO; Value: 2; Range: 0-3; Units: /HPF; Status: F Test: BACTERIA, URINE AUTO; Value: NEGATIVE; Range: NEGATIVE; Status: F Test: SQUAMOUS EPITHELIAL CELL UR AU; Value: 0; Range: 0-6; Units: /HPF; Status: F Test: MUCUS, URINE; Value: SMALL; Range: NEGATIVE; Status: F Test: HYALINE CAST, URINE AUTO; Value: 0; Range: 0-1; Units: /LPF; Status: F Lab Order: Drug Eval Toxicology ED Only; SPEC'M 09/25/16 18:05 Test: AMPHETAMINES LEVEL URINE; Value: NEGATIVE; Range: NEGATIVE; Status: F Test: BARBITURATES URINE; Value: NEGATIVE; Range: NEGATIVE; Status: F Test: BENZODIAZEPINES URINE; Value: NEGATIVE; Range: NEGATIVE; Status: F Test: CANNABINOIDS URINE; Value: POSITIVE; Range: NEGATIVE; Abnormal: Above high normal; Status: F Test: COCAINE METABOLITE URINE; Value: NEGATIVE; Range: NEGATIVE; Status: F Test: METHADONE URINE; Value: NEGATIVE; Range: NEGATIVE; Status: F Test: OPIATES URINE; Value: NEGATIVE; Range: NEGATIVE; Status: F Test: TRICYCLIC ANTIDEPRESS URINE; Value: NEGATIVE; Range: NEGATIVE; Status: F Test Note: ; FALSE POSITIVE RESULTS CAN BE CAUSED BY THE USE OF PANTOPRAZOLE (PROTONIX). Lab Order: CREATINE PHOSPHOKINASE; SPEC'M 09/25/16 18:09 Test: CPK CREATINE PHOSPHOKINASE; Value: 467; Range: 39-308; Abnormal: Above high normal; Units: U/L; Status: F Radiology Order: Chest, 2 View (pa\\E\\lat) Test: Chest, 2 View (pa\\E\\lat) REASON FOR EXAMINATION: r/o pna; CHEST X-RAY PA AND LATERAL: 09/25/2016.; ; Clinical history: Pneumonia.; ; Findings: The two views are without prior studies for comparison. Lungs are; well inflated. CP angles sharply defined. There is patchy atelectasis or; infiltrate in the left base without air bronchograms or dense consolidation. A; few cuffed bronchi in the perihilar regions are noted, more on the right than; left. No nodular mass. The heart, mediastinal and hilar contours are; unremarkable. Airway intact. Aorta normal. Bones without focal lesion. No; free air under the diaphragm.; ; Impression:; ; 1. Patchy left infrahilar infiltrate or atelectasis without dense consolidation; or pleural effusion. There were a few cuffed bronchi in the perihilar regions; that might reflect reactive airway disease or bronchitis.; ; ; Signed by; Gurpreet Min MD 09/25/2016 07:46 P; Outcome: 20:02 Discharge ordered by Provider. jk8 20:20 Discharge Assessment: Patient awake, alert and oriented x 3. No cognitive and/or ms18 functional deficits noted. Patient verbalized understanding of disposition instructions. patient administered narcotics - no. The following High Risk Discharge criteria are identified: None. Discharged to home ambulatory. Condition: good Condition: stable. Discharge instructions given to patient, Instructed on discharge instructions, follow up and referral plans. medication usage, Demonstrated understanding of instructions, medications, Pt was receptive of discharge instructions/ teaching. Prescriptions given X 2. No special radiology studies were completed. 20:23 Patient left the ED. ms18 Signatures: Dispatcher [employer] EDMS Catrachita Qureshi RN RN José Miguel Dalton RN RN cz Tere Yanez, HAIR BOILER HAIR BOILER ar3 Boris Kenny gr2 Erin Duarte RN RN ms18 Shadi Morgan, FRANNY PAYing Mayo Kathie klr Corrections: (The following items were deleted from the chart) 19:44 19:42 CREATINE PHOSPHOKINASE+LAB sent. ar3 EDWI Chart Complete MTDD
== END 2016-09-25 20:23 | disposition home or self-care (01) ==
LOC: M ED 16:53
DX: M79.1 Myalgia (principal); Z91.013 Allergy to seafood